=== PATIENT | female | born 1950 | race Asian ===

== ENCOUNTER 2019-07-05 18:29 | Inpatient (IN) | payer MEDICARE, OTHER ==
[~2019-07-05] VITALS: Ht 152.4 cm; Wt 59.0 kg
[2019-07-05] MEDS ORDERED: COZAAR100 MG ORAL (18:41)
--- NOTE | 2019-07-05 18:45 | NUR ---
ED Nurse Note: patient walked into ED from home c/o chest tightness that started this morning around 11AM. patient reports chills but denies any headache. patient is alert awake x4 ambulatory, breathing unlabored and even, speaking in full sentences. patient placed on a hospital gown, on acardiac monitor.
[2019-07-05 18:48] VITALS: BP 165/82
--- NOTE | 2019-07-05 19:06 | Emergency Room Report ---
History of Present Illness General Chief Complaint: Chest Pain Source: Patient Present Illness HPI 69-year-old female history of hypertension history of hyperlipidemia history of diabetes history of family history of cardiac disease presents with chest tightness that came and went she checked her blood pressure was elevated, she endorsed some shortness of breath and and discomfort in her chest has been intermittent, no known aggravating relieving factors severity is moderate, intermittent patient presents for evaluation Allergies: Coded Allergies: No Known Allergies (Unverified , 07/05/19) COVID-19 Screening Contact w/high risk pt: No Recent Travel to affected area: No Experienced COVID-19 symptoms?: No Patient History Past Medical History: see triage record Reviewed Nursing Documentation: PMH: Agreed; PSxH: Agreed Nursing Documentation-PMH Past Medical History: No History, Except For Hx Hypertension: Yes Hx Diabetes: Yes Review of Systems All Other Systems: negative except mentioned in HPI Physical Exam Vital Signs Date Time Temp Pulse Resp B/P (MAP) Pulse Ox O2 Delivery O2 Flow Rate FiO2 07/05/19 18:36 98.2 75 18 183/88 (119) 97 Room Air Sp02 EP Interpretation: reviewed, normal General Appearance: well appearing, no apparent distress, alert Head: normocephalic, atraumatic Eyes: bilateral eye PERRL, bilateral eye EOMI ENT: uvula midline, moist mucus membranes Neck: supple, thyroid normal, supple/symm/no masses Respiratory: lungs clear, no respiratory distress, no retraction, no accessory muscle use Cardiovascular #1: normal peripheral pulses, regular rate, rhythm, no edema, no gallop, no murmur Gastrointestinal: non tender, soft, no guarding, no rebound Musculoskeletal: normal inspection Neurologic: alert, oriented x3 Psychiatric: mood/affect normal Skin: no rash, warm/dry Medical Decision Making Diagnostic Impression: Primary Impression: Chest pain Qualified Codes: R07.9 - Chest pain, unspecified ER Course 69-year-old female presents with chest pain concerning for possible ACS differential diagnosis also includes pneumonia, pneumothorax EKG shows no acute elevations patient was given aspirin as well as nitroglycerin Spoke with Dr. Galvez at 7:30pm patient accepted to [facility] Laboratory Tests Test 07/05/19 18:40 White Blood Count 6.2 K/UL (4.8-10.8) Red Blood Count 4.68 M/UL (4.20-5.40) Hemoglobin 13.9 G/DL (12.0-16.0) Hematocrit 42.2 % (37.0-47.0) Mean Corpuscular Volume 90 FL (80-99) Mean Corpuscular Hemoglobin 29.7 PG (27.0-31.0) Mean Corpuscular Hemoglobin Concent 32.9 G/DL (32.0-36.0) Red Cell Distribution Width 12.1 % (11.6-14.8) Platelet Count 287 K/UL (150-450) Mean Platelet Volume 7.4 FL (6.5-10.1) Neutrophils (%) (Auto) 50.9 % (45.0-75.0) Lymphocytes (%) (Auto) 34.2 % (20.0-45.0) Monocytes (%) (Auto) 9.0 % (1.0-10.0) Eosinophils (%) (Auto) 3.8 % (0.0-3.0) H Basophils (%) (Auto) 2.1 % (0.0-2.0) H Prothrombin Time 9.6 SEC (9.30-11.50) Prothrombin Time INR 0.9 (0.9-1.1) Activated Partial Thromboplast Time 30 SEC (23-33) Sodium Level 132 MMOL/L (136-145) L Potassium Level 4.2 MMOL/L (3.5-5.1) Chloride Level 96 MMOL/L (98-107) L Carbon Dioxide Level 30 MMOL/L (21-32) Anion Gap 6 mmol/L (5-15) Blood Urea Nitrogen 18 mg/dL (7-18) Creatinine 0.7 MG/DL (0.55-1.30) Estimated Glomerular Filtration Rate > 60 mL/min (>60) Glucose Level 146 MG/DL (74-106) H Calcium Level 9.5 MG/DL (8.5-10.1) Total Bilirubin 0.5 MG/DL (0.2-1.0) Aspartate Amino Transferase (AST) 22 U/L (15-37) Alanine Aminotransferase (ALT) 18 U/L (12-78) Alkaline Phosphatase 69 U/L (46-116) Troponin I 0.000 ng/mL (0.000-0.056) Pro-B-Type Natriuretic Peptide 31 pg/mL (0-125) Total Protein 8.0 G/DL (6.4-8.2) Albumin 4.2 G/DL (3.4-5.0) Globulin 3.8 g/dL Albumin/Globulin Ratio 1.1 (1.0-2.7) EKG Diagnostic Results EKG Time: 18:50 EP Interpretation: NSR, rate 69, QTc 441, right bundle branch block, no acute ST elevation Rhythm Strip Diag. Results Rhythm Strip Time: 19:06 EP Interpretation: yes Rate: 66 Rhythm: NSR, no PVC's, no ectopy Chest X-Ray Diagnostic Results Chest X-Ray Diagnostic Results : Chest X-Ray Ordered: Yes # of Views/Limited/Complete: 1 View Indication: Chest Pain EP Interpretation: Yes Interpretation: no consolidation, no effusion, no pneumothorax, no acute cardiopulmonary disease Impression: No acute disease Electronically Signed by: Santos Beltran MD Last Vital Signs Date Time Temp Pulse Resp B/P (MAP) Pulse Ox O2 Delivery O2 Flow Rate FiO2 07/05/19 18:50 73 11 Room Air 07/05/19 18:48 98.2 165/82 100 Disposition: SHORT-TERM HOSP Condition: Stable Santos Beltran MD Jul 05, 2019 19:06
[2019-07-05 19:08] LABS: BASOPHILS % (AUTO) 2.1 % (0.0-2.0); EOSINOPHILS % (AUTO) 3.8 % (0.0-3.0); HEMATOCRIT 42.2 % (37.0-47.0); HEMOGLOBIN 13.9 G/DL (12.0-16.0); LYMPHOCYTES % (AUTO) 34.2 % (20.0-45.0); MEAN CORPUSCULAR VOLUME 90 FL (80-99); NEUTROPHILS % (AUTO) 50.9 % (45.0-75.0); PLATELET COUNT 287 K/UL (150-450); RED BLOOD COUNT 4.68 M/UL (4.20-5.40); RED CELL DISTRIBUTION WIDTH 12.1 % (11.6-14.8); WHITE BLOOD COUNT 6.2 K/UL (4.8-10.8)
--- NOTE | 2019-07-05 19:09 | NUR ---
HAND-OFF: Report given to Dominique CORLEY, endorsed all plan of care to Alok WONG RN. .
--- NOTE | 2019-07-05 19:09 | NUR ---
ED Nurse Note: received report from Jennifer CORLEY. Will resume care of patient
--- NOTE | 2019-07-05 19:10 | NUR ---
ED Nurse Note: blood drawn and sent to lab
[2019-07-05 19:15] LABS: INR 0.9 (0.9-1.1)
[2019-07-05] MEDS ORDERED: Nitroglycerin 2% oint pkt TOPIC ONE (19:15)
[2019-07-05] MEDS ORDERED: Aspirin Baby 81mg ORAL ONE (19:15)
[2019-07-05 19:21] LABS: ANION GAP 6 mmol/L (5-15); BLOOD UREA NITROGEN 18 mg/dL (7-18); CALCIUM 9.5 MG/DL (8.5-10.1); CARBON DIOXIDE 30 MMOL/L (21-32); CHLORIDE 96 MMOL/L (98-107); CREATININE 0.7 MG/DL (0.55-1.30); POTASSIUM 4.2 MMOL/L (3.5-5.1); SODIUM 132 MMOL/L (136-145)
[2019-07-05 19:35] LABS: ALANINE AMINOTRANSFERASE 18 U/L (12-78); ALBUMIN 4.2 G/DL (3.4-5.0); ALBUMIN/GLOBULIN RATIO 1.1 (1.0-2.7); ALKALINE PHOSPHATASE 69 U/L (46-116); ASPARTATE AMINO TRANSFERASE 22 U/L (15-37); BILIRUBIN,TOTAL 0.5 MG/DL (0.2-1.0)
[2019-07-05 20:50] LABS: APPEARANCE,URINE CLEAR; BILIRUBIN, URINE NEGATIVE (NEGATIVE); COLOR,URINE PALE YELLOW; GLUCOSE, URINE (UA) NEGATIVE (NEGATIVE); KETONES,URINE NEGATIVE (NEGATIVE); LEUKOCYTE ESTERASE ,URINE NEGATIVE (NEGATIVE); NITRITE,URINE NEGATIVE (NEGATIVE); PH,URINE 6 (4.5-8.0); PROTEIN,URINE NEGATIVE (NEGATIVE); UROBILINOGEN,URINE NORMAL MG/DL (0.0-1.0)
[2019-07-05 21:55] VITALS: BP 134/76
--- NOTE | 2019-07-05 22:07 | NUR ---
ED Nurse Note: gave report to Haylee CORLEY
--- NOTE | 2019-07-05 22:10 | NUR ---
TRANSFER TO FLOOR: Patient transferred to [facility] via gurney accompanied by 1 rn 1tech in stable condition as ordered, per dr. Peterson. Report given to Haylee CORLEY. Belongings sent with patient,
[2019-07-05 22:15] VITALS: BP 137/71
--- NOTE | 2019-07-05 22:20 | NUR ---
NURSE NOTES: Patient arrived to the unit via sherie @[id number] accompanied by the ED RN. Report received from Jose, the ED RN. Patient is awake, alert, and responsive. Breathing regular and unlabored on RA with no s/s of SOB noted. IV access patent, intact, and saline locked. Patient currently has chest pain 2-10, stating that it has gotten better. Patient has a nitro-patch/ointment on the chest. Vitals taken, remain within normal limits. Placed patient on school bus monitor, showing sinus rhythm. Belongings list reviewed, and remained with the patient. MD placed admitting orders, orders noted and carried out. Oriented patient to the room, able to make needs known. Patient was able to ambulate to and from restroom with a steady gait. Bed remains in lowest position, breaks engaged, and call light within reach at all times. All other needs attended to, patient remains stable, will continue to monitor.
[2019-07-05] MEDS ORDERED: Morphine Sulfate 4mg/ml Inj (IV USE ONLY) IVP PRN (22:30)
[2019-07-05] MEDS ORDERED: Zolpidem 5mg tab ORAL PRN (22:30)
[2019-07-05] MEDS ORDERED: Milk of Magnesia 30ml Ud ORAL PRN (22:30)
[2019-07-05] MEDS ORDERED: Morphine Sulfate 2mg/ml Inj(IV/IM USE ONLY) IVP PRN (22:30)
[2019-07-06] VITALS: BP 139/77
--- NOTE | 2019-07-06 02:29 | NUR ---
HAND-OFF: Report given to JORY Park. Patient asleep, in stable condition. Plan of care endorsed.
--- NOTE | 2019-07-06 02:35 | NUR ---
NURSE NOTES: Received report from JORY Langley. Patient is asleep lying semi-rawls's; resting comfortably. No signs of acute distress or pain noted at this time. AOx4; able to make needs known. Ambulates independently. Checked IV site; patent and flushed. No erythema, bleeding, or infiltration noted. Bed at lowest position, brakes on, siderails up x2. Call light within reach. Will continue to monitor.
[2019-07-06 04:00] VITALS: BP 109/68
--- NOTE | 2019-07-06 07:45 | NUR ---
HAND-OFF: Report given to JORY Sanchez. Patient is awake eating breakfast. In stable condition.
[2019-07-06 08:00] VITALS: BP 114/69
--- NOTE | 2019-07-06 08:00 | NUR ---
NURSE NOTES: Pt awake/alert in bed, breathing easily on room air, denies SOB and denies pain at this time. Vital signs stable with SR @ 75 on monitor. IV access right hand, flushed with 10 ml NS and locked. SCDs in place and running. Bed left in low position, side rails up x 2 and call light left near pt's hand.
[2019-07-06 08:19] LABS: CHOLESTEROL 137 MG/DL (< 200); HDL CHOLESTEROL 59 MG/DL (40-60); TRIGLYCERIDES 73 MG/DL (30-150)
[2019-07-06] MEDS ORDERED: Aspirin Baby 81mg ORAL SCH (09:00)
[2019-07-06] MEDS ORDERED: Losartan 50mg tab ORAL SCH (09:00)
[2019-07-06 12:00] VITALS: BP 111/62
--- NOTE | 2019-07-06 13:11 | History & Physical ---
History and Physical History & Physicial dictated [id number] Jareth Peterson MD Jul 06, 2019 13:11
[2019-07-06 15:30] VITALS: BP 117/74
--- NOTE | 2019-07-06 15:50 | Cardiology Progress Note ---
Assessment/Plan Assessment/Plan pt want to leave needs to ahve a stress test will need to eirher see pmd to get referrral or my office all tropneg [id number] Objective Last 24 Hour Vital Signs Date Time Temp Pulse Resp B/P (MAP) Pulse Ox O2 Delivery O2 Flow Rate FiO2 07/06/19 15:30 97.3 74 16 117/74 (88) 98 07/06/19 12:00 97.9 65 18 111/62 (78) 98 07/06/19 12:00 65 07/06/19 09:11 114/69 07/06/19 08:00 98.4 80 18 114/69 (84) 98 07/06/19 08:00 87 07/06/19 04:00 97.3 74 17 109/68 (82) 98 07/06/19 04:00 81 07/06/19 00:00 97.6 66 18 139/77 (97) 99 07/06/19 00:00 70 07/05/19 22:40 Room Air 07/05/19 22:23 84 07/05/19 22:15 97.7 64 18 137/71 (93) 99 07/05/19 22:10 98.4 73 11 134/76 99 Room Air 68 07/05/19 21:55 98.4 68 11 134/76 99 Room Air 07/05/19 19:07 165/82 07/05/19 18:50 73 11 Room Air 07/05/19 18:48 98.2 73 11 165/82 100 Room Air 07/05/19 18:36 98.2 75 18 183/88 (119) 97 Room Air Intake and Output 07/05/19 07/06/19 19:00 07:00 # Voids 2 Laboratory Tests Test 07/05/19 18:40 07/05/19 20:10 07/06/19 06:20 White Blood Count 6.2 K/UL (4.8-10.8) Red Blood Count 4.68 M/UL (4.20-5.40) Hemoglobin 13.9 G/DL (12.0-16.0) Hematocrit 42.2 % (37.0-47.0) Mean Corpuscular Volume 90 FL (80-99) Mean Corpuscular Hemoglobin 29.7 PG (27.0-31.0) Mean Corpuscular Hemoglobin Concent 32.9 G/DL (32.0-36.0) Red Cell Distribution Width 12.1 % (11.6-14.8) Platelet Count 287 K/UL (150-450) Mean Platelet Volume 7.4 FL (6.5-10.1) Neutrophils (%) (Auto) 50.9 % (45.0-75.0) Lymphocytes (%) (Auto) 34.2 % (20.0-45.0) Monocytes (%) (Auto) 9.0 % (1.0-10.0) Eosinophils (%) (Auto) 3.8 % (0.0-3.0) H Basophils (%) (Auto) 2.1 % (0.0-2.0) H Prothrombin Time 9.6 SEC (9.30-11.50) Prothromb Time International Ratio 0.9 (0.9-1.1) Activated Partial Thromboplast Time 30 SEC (23-33) Sodium Level 132 MMOL/L (136-145) L Potassium Level 4.2 MMOL/L (3.5-5.1) Chloride Level 96 MMOL/L (98-107) L Carbon Dioxide Level 30 MMOL/L (21-32) Anion Gap 6 mmol/L (5-15) Blood Urea Nitrogen 18 mg/dL (7-18) Creatinine 0.7 MG/DL (0.55-1.30) Estimat Glomerular Filtration Rate > 60 mL/min (>60) Glucose Level 146 MG/DL (74-106) H Calcium Level 9.5 MG/DL (8.5-10.1) Total Bilirubin 0.5 MG/DL (0.2-1.0) Aspartate Amino Transf (AST/SGOT) 22 U/L (15-37) Alanine Aminotransferase (ALT/SGPT) 18 U/L (12-78) Alkaline Phosphatase 69 U/L (46-116) Troponin I 0.000 ng/mL (0.000-0.056) 0.000 ng/mL (0.000-0.056) Pro-B-Type Natriuretic Peptide 31 pg/mL (0-125) Total Protein 8.0 G/DL (6.4-8.2) Albumin 4.2 G/DL (3.4-5.0) Globulin 3.8 g/dL Albumin/Globulin Ratio 1.1 (1.0-2.7) Urine Color Pale yellow Urine Appearance Clear Urine pH 6 (4.5-8.0) Urine Specific [place] 1.005 (1.005-1.035) Urine Protein Negative (NEGATIVE) Urine Glucose (UA) Negative (NEGATIVE) Urine Ketones Negative (NEGATIVE) Urine Blood Negative (NEGATIVE) Urine Nitrite Negative (NEGATIVE) Urine Bilirubin Negative (NEGATIVE) Urine Urobilinogen Normal MG/DL (0.0-1.0) Urine Leukocyte Esterase Negative (NEGATIVE) Urine Opiates Screen Negative (NEGATIVE) Urine Barbiturates Screen Negative (NEGATIVE) Phencyclidine (PCP) Screen Negative (NEGATIVE) Urine Amphetamines Screen Negative (NEGATIVE) Urine Benzodiazepines Screen Negative (NEGATIVE) Urine Cocaine Screen Negative (NEGATIVE) Urine Marijuana (THC) Screen Negative (NEGATIVE) Hemoglobin A1c 9.4 % (4.3-6.0) H Triglycerides Level 73 MG/DL (30-150) Cholesterol Level 137 MG/DL (< 200) LDL Cholesterol 55 mg/dL (<100) HDL Cholesterol 59 MG/DL (40-60) Cholesterol/HDL Ratio 2.3 (3.3-4.4) L Thyroid Stimulating Hormone (TSH) 2.406 uiU/mL (0.358-3.740) Mitch Scales MD Jul 06, 2019 15:50
[2019-07-06] MEDS ORDERED: NovoLOG Insulin Flexpen SUBQ SCH (16:30)
--- NOTE | 2019-07-06 16:30 | NUR ---
NURSE NOTES: IV access removed, tele box and ID band removed. Pt signed belongings list, discharge summary and discharge checklists. Pt breathing easily on room air, denies pain. Walked down to hospital entrance where family was waiting in a car to take her home. Pt advised to follow up with Dr Scales and also her own PMD.
--- NOTE | 2019-07-06 20:29 | History and Physical Report ---
DATE OF ADMISSION: 07/05/2019 CHIEF COMPLAINT: Chest pain. HISTORY OF PRESENT ILLNESS: This is a 69-year-old [place] female, who did some shopping yesterday and was carrying heavy stuff. She went home and a couple of hours later, she started having some chest pain on the right side. She came to the emergency room and was admitted. She does have risk factors, diabetes and hypertension, but she does not have any history of coronary artery disease. PAST MEDICAL HISTORY: History as above. SOCIAL HISTORY: No history of smoking or alcohol abuse. The patient lives at home. Her just got open-heart surgery and she is very worried about him. ALLERGIES: No known drug allergies. REVIEW OF SYSTEMS: As above. PHYSICAL EXAMINATION: GENERAL: The patient is a pleasant female in no acute distress. VITAL SIGNS: Blood pressure is 114/69, pulse 67, respirations 18, and temperature 98.4. HEENT: [place] conjunctivae. Anicteric sclerae. NECK: Supple. LUNGS: Clear to auscultation. HEART: S1, S2 without murmurs or rubs. ABDOMEN: Soft, nontender. EXTREMITIES: No cyanosis or edema. LABORATORY FINDINGS: The CBC shows WBC of 6200, hematocrit is 42.2, hemoglobin is 13.9, and platelet is 287,000. Chemistry panel shows a serum sodium of 132, potassium 4.2, chloride 96, BUN 18, creatinine 0.7, and blood sugar is 146. Hemoglobin A1c is 9.4. UA is negative. Troponin was negative x2. ASSESSMENT: This is a 69-year-old [place] female who was admitted with atypical chest pain. She has history of diabetes, hypertension, and hyperlipidemia. PLAN: The patient will be seen by Dr. Scales in Cardiology consultation. She was started on aspirin. We will continue her regular medications. If she is cleared by Dr. Scales, she will be discharged home. Jareth Peterson M.D. DR: Raunlfo JOB#: [id number] CC:
--- NOTE | 2019-07-08 09:00 | Consultation ---
DATE OF CONSULTATION: 07/06/2019 CARDIOLOGY CONSULTATION CONSULTING PHYSICIAN: Mtich Scales M.D. REFERRING PHYSICIAN: Jareth Peterson M.D. REASON FOR REFERRAL: Chest discomfort. HISTORY OF PRESENT ILLNESS: This is a middle-aged female, who presented to the hospital yesterday. She was apparently shopping in the grocery store, carried two large gallons of drinks and groceries to her car from the grocery store, and got home, took the groceries out, walked all the way up at home. When she got there, she felt some kind of discomfort on the right side of her chest and that sensation was coming and going for a duration of 15 minutes 00:55 two hours and eventually she presented to the emergency room here at [facility] and subsequently was evaluated, hospitalized, and has been wanting to go home very 01:[address] Peterson asked me to see her today and I have just recently seen her. She does not have any discomfort right now. She is usually active and walks and she denies having any pain, pressure, tightness, or heaviness 01:26 with her activities at home. She does not have any shortness of breath with activity. There is no PND or orthopnea. She uses two pillows for comfort. No dizziness when she sits up or stands up. No heart pounding or palpitation. PAST MEDICAL HISTORY: Positive for diabetes and high blood pressure. Not sure about high cholesterol, but she thinks she has because she is taking medication for it. No history of heart attack. No cancer, stroke, hepatitis, tuberculosis, asthma, or emphysema. No ulcers. No kidney problems, liver problems, thyroid problems, anemia, arthritis, HIV/AIDS, blood clots, or gynecological problems. ALLERGIES: No allergies to medications. SOCIAL HISTORY: Does not smoke, never did. Does not drink, never did. No drugs. 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 REVIEW OF SYSTEMS: GASTROINTESTINAL: Negative. GENITOURINARY: Negative. PULMONARY: Negative. CONSTITUTIONAL: Negative. NEUROLOGICAL: Negative. PHYSICAL EXAMINATION: GENERAL: Shows to be a middle-aged female, in no respiratory distress. She is all dressed and ready to get out of the hospital. She has been threatening to do so. NECK: Supple. No jugular venous distention. VITAL SIGNS: Blood pressure is 117/74 with heart rate of 74 and temperature 97.3. LUNGS: Clear to auscultation and percussion. CARDIAC: S1 is normal. S2 is normal. Regular rate and rhythm. No heaves, thrills, gallops, or rubs are noted. ABDOMEN: Soft and nontender. Positive bowel sounds. EXTREMITIES: There is no clubbing, cyanosis, nor is there any edema. NEUROLOGIC: She is awake, alert, and responsive. LABORATORY AND DIAGNOSTIC DATA: Laboratory values, white count of 6.3, hemoglobin 13.9, and platelet count of 287. Her sodium is 132, potassium 4.3, chloride 96, bicarb 30, BUN of 18, creatinine 0.7, and glucose of 146. Hemoglobin A1c of 9.4. Troponins are negative on two separate occasions between last night and this morning. Natriuretic peptide is only 31. Her total protein is 8. Total cholesterol 137 with LDL of 55 and HDL of 59. TSH of 2.46. Her INR is 0.9 and PTT of 30. Toxicology screen is negative and urinalysis negative. Chest x-ray has not been reported. Final report is not available by Radiology, but it looks relatively benign at least to my reading. 03:22 report is again pending at this time. The patient's electrocardiogram showed sinus rhythm, right bundle-branch conduction defect, and telemetry shows sinus as well. ASSESSMENT AND PLAN: 1. Atypical chest pain. 2. Diabetes. 3. Hypertension. 4. Hyperlipidemia history, now on treatment. Dr. Peterson, this patient was seen in cardiac consultation. There is no evidence of myonecrosis despite the fact that the patient had two hours intermittently of chest pain. EKG is not normal, right bundle-branch conduction, but there are no ischemic changes at least on the EKG and cardiac enzymes are negative. She is very adamant about going home today even though her cardiac enzymes negative. She does have multiple risk factors for coronary artery disease and I would recommend that she undergo stress testing, but she wants to leave the hospital as the stress test cannot be done until Monday. Nevertheless, the recommendation remains and I have given her information to contact my office to set up the stress test or if her insurance does not allow that, she should definitely see her primary care physician and obtain a referral for stress test as outpatient. The pain is mainly right sided and making the pain less likely of an ischemic origin, but not 04:54 probable. Mitch Scales M.D. DR: JACQUIE JOB#: [id number] CC:
--- NOTE | 2019-07-08 10:57 | Discharge Summary ---
Discharge Summary Discharge Summary _ DATE OF ADMISSION: 07/05/2019 DATE OF DISCHARGE: 07/06/2019 DISCHARGED BY: Dr. Jareth Peterson REASON FOR ADMISSION: 69 years old female with past medical history of hypertension, diabetes mellitus , hyperlipidemia, family history of cardiac disease, presented with chest tightness and shortness of breath. Upon evaluation blood pressure was elevated 183/88. Laboratory work-up revealed no leukocytosis, stable hemoglobin, hematocrit, and platelet count. Troponin negative, pro BNP 31. EKG revealed sinus rhythm with right bundle branch block, no acute ischemic changes. Glucose 146. Chest x-ray revealed no acute cardiopulmonary pathology. In emergency department patient received aspirin and nitroglycerin and admitted to telemetry floor for further management. CONSULTANTS: metal furniture assembler Dr. Scales [facility] COURSE: Patient admitted to telemetry floor. Serial troponin were negative. EKG revealed no acute ischemic changes. Patient ruled out for acute myocardial infarction. Lipid panel was stable. TSH was within normal limits. Per metal furniture assembler , no evidence of myonecrosis. Cardiac enzymes were negative. EKG not normal and showed right bundle branch conduction , but there was no acute ischemic changes. Per metal furniture assembler patient had multiple risk factors for coronary artery disease. Animal Daycare Provider recommended stress test. Patient preferred to leave the hospital , since the stress test could not be done until Monday. Patient was recommended to contact metal furniture assembler to schedule a stress test. Aspirin continued. Pain management was addressed as needed. Blood pressure was managed with angiotensin receptor payal, and stabilized. Blood sugar was managed with sliding scale of insulin as needed. Hemoglobin A1c 9.4. Patient required better blood sugar control with close monitoring with her primary care provider. Diabetic teaching provided. GI prophylaxis provided. Patient clinically stabilized and was ready for discharge home. Blood pressure prior to discharge 117/74. Due to rapid and unexpected improvement in patient condition, patient was discharged in 1 day. FINAL DIAGNOSES: Atypical chest pain Diabetes mellitus Hypertension Hyperlipidemia DISCHARGE MEDICATIONS: List of medication provided to patient. DISCHARGE INSTRUCTIONS: Patient was discharged home. Patient to follow-up with metal furniture assembler for stress test as outpatient. To follow-up with a primary care provider in 1 week. I have been assigned to dictate discharge summary for this account. I was not involved in the patient's management. Lesa Du NP Jul 08, 2019 10:57
--- NOTE | 2019-07-08 12:33 | Diagnostic Imaging Report ---
Indication: Dyspnea Comparison: None A single view chest radiograph was obtained. Findings: No definite infiltrate or pulmonary vascular congestion identified. The heart is enlarged. The aorta is mildly enlarged consistent with atherosclerotic vascular disease. The bones are osteopenic. There are thoracic vertebral enthesophytes at multiple levels. Impression: No acute disease
--- NOTE | 2019-07-08 15:13 | NUR ---
*-* INSURANCE *--* ALL AVAILABLE CLINICALS HAVE BEEN FAXED TO: [facility] # [phone] fax# [phone]
== END 2019-07-06 16:45 | disposition home or self-care (01) | DRG 313 ==
LOC: EMR 18:45 → 2E 21:25 → EDBEDREQ 21:36
DX: R07.89 Other chest pain (principal); I45.10 Unspecified right bundle-branch block; I10 Essential (primary) hypertension; E78.5 Hyperlipidemia, unspecified; E11.9 Type 2 diabetes mellitus without complications
CPT/HCPCS: 36415; 71045; 80053; 80061; 80307; 81003; 83036; 83880; 84443; 84484; 85025; 85610; 85730; 93005; 99285; J1815